=== PATIENT | male | born 1985 | race Two or more races ===

== ENCOUNTER 2016-06-22 20:02 | Emergency (ER) | payer SELFPAY ==
[2016-06-22] MEDS ORDERED: DIPHTH,PERTUSS(ACELL),TET VAC 0.5 ML VIAL IM V ONE (22:21)
== END 2016-06-22 23:29 | disposition home or self-care (01) ==
LOC: ED 20:02
DX: S51.812A Laceration without foreign body of left forearm, initial encounter (principal); Z23 Encounter for immunization; W25.XXXA Contact with sharp glass, initial encounter; Y93.55 Activity, bike riding; Y92.413 State road as the place of occurrence of the external cause